=== PATIENT | male | born 1985 | race Caucasian/White ===

== ENCOUNTER 2017-05-12 06:34 | Emergency (ER) | payer BC ==
[2017-05-12] MEDS ORDERED: Ketorolac INJ* 60 MG/2 ML VIAL IM ONE (07:22)
[2017-05-12] MEDS ORDERED: Dexamethasone IV* 4 MG/ML 1 ML (4 MG) IM ONE (07:22)
[2017-05-12] MEDS ORDERED: Orphenadrine Citrate IV* 30 MG/ML 2 ML VIAL IM ONE (07:22)
--- NOTE | 2017-05-12 08:16 | RAD ---
INDICATION: Right shoulder injury. TECHNIQUE: 4 views of the right shoulder were obtained. FINDINGS: The bones are in normal alignment. No fracture is seen. Joint spaces appear maintained. IMPRESSION: NO EVIDENCE OF FRACTURE.
--- NOTE | 2017-05-12 08:17 | RAD ---
Indication: Low back pain at base of spine post fall one week ago and additional jarring injury yesterday. Comparison: No relevant prior exams available on the [facility] PACS for comparison. Technique: AP and lateral views lumbar sacral spine. Report: Alignment is anatomic. No cortical disruption or trabecular impaction to indicate a vertebral body fracture. The L5-S1 disc space is moderately narrow compared with L4-L5 which may be normal or reflect degenerative spondylosis. Negative for vertebral endplate osteophytosis, reactive endplate sclerosis, or facet joint osteoarthritis to favor degenerative spondylosis. Unremarkable soft tissue contours. IMPRESSION: Negative for fracture. Congenitally narrow L5-S1 disc space versus degenerative spondylosis without compelling secondary findings to favor degenerative spondylosis.
[2017-05-12 09:23] VITALS: BP 103/61
--- NOTE | 2017-05-13 08:15 | ED ---
Solitario Jasso Angela, scribed for Willy Rader MD on 05/12/17 at 0716 . Back Pain - HPI Summary HPI Summary: This pt is a 31 y/o male [facility] c/o lower back pain since yesterday , worse this morning. Pt reports his pain is across his lower back. He also states he has pain on right shoulder and right sided neck. He rates his pain 7/ 10 in severity. He reports he slipped yesterday but did not fall as he caught himself. Pt notes he fell down 3 steps 1 week ago, no head strike or LOC. Denies urinary or bowel dysfunction, LE weakness or numbness. NKDA. Denies any PMHx. - History of Current Complaint Chief Complaint: EDBackInjuryPain Stated Complaint: SHOULDER/NECK/BACK PAIN Time Seen by Provider: 05/12/17 07:12 Hx Obtained From: Patient Onset/Duration: Lasting Days, Still Present Onset/Duration: Started Days Ago, Still Present Timing: Lasting Days Back Pain Location: Is Discrete @ - lower back Severity Currently: Severe Pain Intensity: 7 Pain Scale Used: 0-10 Numeric Aggravating Symptom(s): Nothing Alleviating Symptom(s): Nothing Associated Signs And Symptoms: Negative: Fever, Weakness, Numbness, Tingling, Abdominal Pain, Bladder Incontinence, Bowel Incontinence - Allergies/Home Medications Allergies/Adverse Reactions: Allergies Allergy/AdvReac Type Severity Reaction Status Date / Time No Known Allergies Allergy Verified 07/27/15 09:12 PMH/Surg Hx/FS Hx/Imm Hx Endocrine/Hematology History: Denies: Hx Diabetes, Hx Thyroid Disease Cardiovascular History: Denies: Hx Hypertension Respiratory History: Denies: Hx Asthma, Hx Chronic Obstructive Pulmonary Disease (COPD) GI History: Denies: Hx Ulcer - Surgical History Surgery Procedure, Year, and Place: none Infectious Disease History: No Infectious Disease History: Denies: Hx Hepatitis, Hx Human Immunodeficiency Virus (HIV), Traveled Outside the [place] in Last 30 Days - Family History Known Family History: Negative: Cardiac Disease, Hypertension, Diabetes - Social History Alcohol Use: Occasionally Substance Use Type: Reports: None Smoking Status (MU): Light Every Day Tobacco Smoker Review of Systems Negative: Fever, Chills Eyes: Negative ENT: Negative Cardiovascular: Negative Respiratory: Negative Negative: incontinence Musculoskeletal: Other - lower back pain, right shoulder pain, neck pain Negative: Weakness, Paresthesia, Numbness All Other Systems Reviewed And Are Negative: Yes Physical Exam - Summary Physical Exam Summary: VITAL SIGNS: Reviewed. GENERAL: Patient is a well-developed and nourished male who is lying comfortable in the stretcher. Patient is not in any acute respiratory distress. HEAD AND FACE: No signs of trauma. No ecchymosis, hematomas or skull depressions. No sinus tenderness. EYES: PERRLA, EOMI x 2, No injected conjunctiva, no nystagmus. EARS: Hearing grossly intact. Ear canals and tympanic membranes are within normal limits. MOUTH: Oropharynx within normal limits. NECK: Supple, trachea is midline, no adenopathy, no JVD, no carotid bruit, no c- spine tenderness, neck with full ROM. CHEST: Symmetric, no tenderness at palpation LUNGS: Clear to auscultation bilaterally. No wheezing or crackles. CVS: Regular rate and rhythm, S1 and S2 present, no murmurs or gallops appreciated. ABDOMEN: Soft, non-tender. No signs of distention. No rebound no guarding, and no masses palpated. Bowel sounds are normal. MSK: no edema, no cyanosis or clubbing. Paraspinal muscle tenderness in both sides of the lumbar spine. Decreased ROM of the right shoulder secondary to pain. NEURO: Alert and oriented x 3. No acute neurological deficits. Speech is normal and follows commands. SKIN: Dry and warm Triage Information Reviewed: Yes Vital Signs On Initial Exam: Initial Vitals Temp Pulse Resp BP Pulse Ox 98.5 F 92 20 132/77 99 05/12/17 06:40 05/12/17 06:40 05/12/17 06:40 05/12/17 06:40 05/12/17 06:40 Vital Signs Reviewed: Yes Diagnostics - Vital Signs Vital Signs Temp Pulse Resp BP Pulse Ox 05/12/17 06:40 98.5 F 92 20 132/77 99 - Laboratory Lab Statement: Any lab studies that have been ordered have been reviewed, and results considered in the medical decision making process. - Radiology Lumbar spine XR Xray Interpretation: No Acute Changes - IMPRESSION: Negative for fracture. Congenitally narrow L5-S1 disc space versus degenerative spondylosis without compelling secondary findings to favor degenerative spondylosis. Dr. Rader has reviewed this radiology report. Radiology Interpretation Completed By: Radiologist Right shoulder XR Xray Interpretation: No Acute Changes - IMPRESSION: No evidence of fracture. Dr. Rader has reviewed this radiology report. Radiology Interpretation Completed By: Radiologist Re-Evaluation - Re-Evaluation First Eval Re-Evaluation Time: 09:16 Comment: I reviewed the XR results with the pt. Back Pain Course/Dx - Course Assessment/Plan: This pt is a 31 y/o male presenting to [facility] c/o lower back pain since yesterday, worse this morning. Pt reports his pain is across his lower back. He also states he has pain on right shoulder and right sided neck. He rates his pain 7/10 in severity. He reports he slipped yesterday but did not fall as he caught himself. Pt notes he fell down 3 steps 1 week ago, no head strike or LOC. Denies urinary or bowel dysfunction, LE weakness or numbness. Lumbar spine XR and right shoulder XR are both negative for an acute fracture or dislocation. In the ED course the pt was given Toradol, Decadron, and Norflex , and his symptoms improved after these medications. Pt is able to ambulate out of the ED with minimal pain. He was given a prescription for pain medications and muscle relaxants. Pt will be discharged to home with follow up from PCP. Pt is hemodynamically stable, alert and oriented x3. - Diagnoses Provider Diagnoses: Low back pain, Low back strain Discharge - Discharge Plan Condition: Stable Disposition: HOME Prescriptions: Cyclobenzaprine TAB* [Flexeril 10 MG TAB*] 10 mg PO TID PRN #12 tab PRN Reason: Pain Ibuprofen TAB* [Motrin TAB* 800 MG] 800 mg PO TID #30 tab methylPREDNISolone [Medrol Dosepak 4 MG*] 0 mg PO .SEE MOOKIE INSTRUCTION #1 mookie Patient Education Materials: Low Back Strain (ED), Back Pain (ED) Referrals: [facility] [Outside] Additional Instructions: Please follow up with your primary care provider. RETURN TO THE ED FOR ANY WORSENING SYMPTOMS. The documentation as recorded by the Solitario hollis Angela accurately reflects the service I personally performed and the decisions made by me, Willy Rader MD.
== END 2017-05-12 09:21 | disposition home or self-care (01) ==
LOC: ED 06:34
DX: S39.012A Strain of muscle, fascia and tendon of lower back, initial encounter (principal); W18.40XA Slipping, tripping and stumbling without falling, unspecified, initial encounter; Y92.9 Unspecified place or not applicable; M53.87 Other specified dorsopathies, lumbosacral region; F17.200 Nicotine dependence, unspecified, uncomplicated
CPT/HCPCS: 72100; 96372; 99282; J1100; J1885; J2360

== ENCOUNTER 2017-05-17 13:12 | Emergency (ER) | payer BC ==
[2017-05-17 13:24] VITALS: BP 132/99
--- NOTE | 2017-05-17 13:28 | UC ---
Neck Pain HPI - HPI Summary HPI Summary: 31 y/o male presents to the urgent care c/o Rt shoulder pain s/p fall last Wednesday05/11/2017. Pt reports he went to the ER on Wednesday and Rx Flexeril PO, Ibuprofen PO and Medrol dose connie PO to alleviate symptoms. 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 Yesterday he felt numbness at the tip of his Rt thumb. Pain is 5/10 at rest and 8/10 w/ movement. His neck pain and lower back pain is improving. Pt states he is almos done w/ Flexeril and he thinks that was helping. Pt denies fever, SOB, chest pain, abdominal pain, N/V/D. - History of Current Complaint Chief Complaint: UCUpperExtremity Stated Complaint: NECK AND SHOULDER PAIN Time Seen by Provider: 05/17/17 13:27 Hx Obtained From: Patient Onset/Duration Of Injury/Symptoms: Days - 6 days ago Mechanism Of Injury: Blunt Trauma Timing: Constant Onset/Duration: Lasting Days - 6 days, Still Present, Worse Since - yesterday Severity: Moderate Pain Intensity: 5 - at rest and 8/10 w/ movement Pain Scale Used: 0-10 Numeric Location: Discrete At: - RT shoulder, Radiates To: - RT arm Character: Dull, Spasmotic Aggravating Factors: Movement Alleviating Factors: OTC Meds - medication Rx at the ER Associated Signs & Symptoms: Positive: Paresthesia - RT tip of the thumb. Negative: Swelling, Redness, Bruising, Fever, Nuchal Rigity - Risk Factors Meningitis Risk Factors: Negative - Allergies/Home Medications Allergies/Adverse Reactions: Allergies Allergy/AdvReac Type Severity Reaction Status Date / Time No Known Allergies Allergy Verified 05/17/17 13:17 PMH/Surg Hx/FS Hx/Imm Hx Previously Healthy: Yes Respiratory History: Asthma Neurological History: Migraine - Surgical History Surgical History: None Surgery Procedure, Year, and Place: none - Family History Known Family History: Positive: Diabetes Negative: Cardiac Disease, Hypertension - Social History Occupation: Employed Full-time Lives: With Family Alcohol Use: Rare Substance Use Type: None Smoking Status (MU): Light Every Day Tobacco Smoker Amount Used/How Often: 2-3/day Review Of Systems Constitutional: Positive: Negative Skin: Positive: Negative Eyes: Positive: Negative Respiratory: Positive: Negative Cardiovascular: Positive: Negative Gastrointestinal: Positive: Negative Genitourinary: Positive: Negative Musculoskeletal: Positive: Decreased ROM - RT shoulder, Other: - RT shoulder pain s/p fall and and mild RT side neck pain Neurological: Positive: Negative Psychological: Positive: Negative All Other Systems Reviewed And Are Negative: No Physical Exam - Summary Physical Exam Summary: Vital Signs Reviewed: Yes General: well developed, well nourished male sitting in the examining table w/ o any apparent distress, Eyes: Positive: Conjunctiva Clear - PERRLA, EOMI, fundi grossly normal ENT: Positive: Normal ENT inspection, Hearing grossly normal, Pharynx normal, TMs normal Neck: Positive: Supple, Nontender, No Lymphadenopathy Respiratory: Positive: Chest non-tender, Lungs clear, Normal breath sounds, No respiratory distress Cardiovascular: Positive: RRR, No Murmur, Pulses Normal, Brisk Capillary Refill Abdomen Description: Positive: Nontender, No Organomegaly, Soft. Negative: CVA Tenderness (R), CVA Tenderness (L) Bowel Sounds: Positive: Present Musculoskeletal: Positive: Strength Intact, RT shoulder: The Rshoulder is without obvious asymmetry or deformity when compared to the L shoulder. No surface trauma, ecchymosis, crepitus. No bony deformity or prominence of humeral head. No erythema, warmth. tender to palpation over the clavicle, scapula. and over Acromioclavicular joint and humeral head with mild swelling, NT to palpation of the bicipital groove . NT to palpation of the muscles of the sternocleidomastoid, pectoralis, tenderness over biceps/triceps, deltoid, trapezius, . Limited ROM due to pain. "empty can and drop arm test unable to perform due to pain. No axillary tenderness or lymphadenopathy. Normal sensation over the deltoid and fingers. Distal motor and neurovascular status is intact. Neurological Exam: Normal Psychological Exam: Normal Skin Exam: Normal Triage Information Reviewed: Yes Vital Signs: Initial Vital Signs Temp 99.3 F 05/17/17 13:17 Pulse 115 05/17/17 13:17 Resp 18 05/17/17 13:17 BP 132/99 05/17/17 13:17 Pulse Ox 100 05/17/17 13:17 Neck Pain Course/Dx - Course Course Of Treatment: 31 y/o male presents to the urgent care c/o Rt shoulder pain s/p fall last Wednesday05/11/2017. Pt reports he went to the ER on Wednesday and Rx Flexeril PO, Ibuprofen PO and Medrol dose connie PO to alleviate symptoms. 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 Yesterday he felt numbness at the tip of his Rt thumb. Pain is 5/10 at rest and 8/10 w/ movement. His neck pain and lower back pain is improving. Pt states he is almos done w/ Flexeril and he thinks that was helping. Pt denies fever, SOB, chest pain, abdominal pain, N/V/ D. Hx obtained. Pt was rencently seen at the ER, I reviwed the RT shoulder X-ray : negative for any osseous injury. Pt probably w/ muscle spasm. Pt Rx more Flexeril PO and given a shouldr Sling to keep shoulder immobilized for 2-3 days. Advised to f/u with Orthopedic Dr Mitchell if not improvemement of symptoms in 5 days for further evaluation and treatment. Pt also advised to keep taking the medications Rx at the ER. Pt understood and agreed w/ plan of care. Pt left the clinic ambulating, A&Ox3. - Differential Dx/Diagnosis Differential Dx/HQI/PQRI: Arthritis, Dislocation, Sprain, Strain, Torticollis, Trauma, Other - RT shoulder Tendinopathy Provider Diagnoses: 1- RT shoulder pain s/p injury. 2- Muscle spasm Discharge - Discharge Plan Condition: Stable Disposition: HOME Prescriptions: Cyclobenzaprine TAB* [Flexeril 10 MG TAB*] 10 mg PO TID PRN #12 tab PRN Reason: Pain Patient Education Materials: Muscle Spasm (ED), Shoulder Pain (ED) Forms: *Work Release Referrals: Abner Bennett MD [Primary Care Provider] - 1 Week Sudhir Mitchell MD [Medical Doctor] - 5 Days Additional Instructions: 1-Please continue taking medications Rx at the ER as directed to alleviate spasm, pain and swelling. 2-Please apply ice, keep your shoulder immobilized with the shoulder sling for 3 -4 days and then resume movement slowly 3- Please f/u with Orthopedic Dr Mitchell in 5 days if symptoms are not improving for further evaluation and treatment
== END 2017-05-17 13:59 | disposition home or self-care (01) ==
LOC: UCEAST 13:12
DX: M25.511 Pain in right shoulder (principal); S49.91XD Unspecified injury of right shoulder and upper arm, subsequent encounter; W19.XXXD Unspecified fall, subsequent encounter; M62.838 Other muscle spasm; J45.909 Unspecified asthma, uncomplicated; G43.909 Migraine, unspecified, not intractable, without status migrainosus; F17.210 Nicotine dependence, cigarettes, uncomplicated
CPT/HCPCS: 99213; G0463